=== PATIENT | female | born 1980 | race Caucasian/White ===

== ENCOUNTER 2019-04-06 16:41 | Emergency (ER) | payer BC, MEDICAID ==
[2019-04-06] MEDS ORDERED: Lidocaine Viscous Sol 2% 15 ml UD Cup ONE (17:33)
[2019-04-06] MEDS ORDERED: Mag-Al Plus 1200 MG/1200 MG/120 MG/30 ML UDCUP ONE (17:33)
[2019-04-06 17:44] LABS: Hemoglobin 11.2 g/dL (12.0-16.0); Red Blood Cell (RBC) Count 4.01 mill/uL (4.20-5.40)
[2019-04-06 17:45] LABS: #Lymphocytes 2.6 thou/uL (1.20-3.40); #Neutrophils 4.7 thou/uL (1.40-6.50); %Basophils 1.4 % (0.0-1.0); %Eosinophils 2.3 % (0.0-10.0); %Lymphocytes 32.6 % (21.0-51.0); %Monocytes 4.9 % (0.0-10.0); %Neutrophils 58.8 % (42.0-75.0); Manual Diff?? NO; Mean Corpuscular HGB CONC 30.4 g/dL (32.0-36.0); Mean Corpuscular Volume 92.1 fL (78.0-98.0); Mean Platelet Volume 7.2 fL (7.4-10.4); Platelet Count 333 thou/uL (130-400)
[2019-04-06 17:46] LABS: #Basophils 0.1 thou/uL (0.0-0.2); #Eosinphils 0.2 thou/uL (0.0-0.7); #Monocytes 0.4 thou/uL (0.11-0.59)
[2019-04-06 17:58] LABS: ALT (SGPT) 23 U/L (8-55); AST (SGOT) 25 U/L (5-34); Albumin 4.2 g/dL (3.5-5.0); Alkaline Phosphatase 94 U/L (40-110); Anion Gap 15 mmol/L (10-20); BUN (Urea Nitrogen) 12 mg/dL (7.0-18.7); Bilirubin, Total 0.2 mg/dL (0.2-1.2); Calc. Creatinine Clearance 0 mL/min (70-130); Calcium 9.2 mg/dL (7.8-10.44); Carbon Dioxide 21 mmol/L (22-29); Chloride 106 mmol/L (98-107); Estimated GFR-MDRD Greater than 90; Globulin 3.2 g/dL (2.4-3.5); Glucose 101 mg/dL (70-105); Potassium 4.1 mmol/L (3.5-5.1); Protein, Total 7.4 g/dL (6.0-8.3); Sodium 138 mmol/L (136-145)
--- NOTE | 2019-04-06 17:59 | RAD ---
TWO VIEWS CHEST: 04/06/19 PROVIDED CLINICAL HISTORY: Chest pain. FINDINGS: Evaluation is limited by patient body habitus. The cardiac silhouette is upper limits of normal to mi ldly enlarged. No focal consolidation, pleural fluid or pneumothorax apparent. IMPRESSION: No evidence for an acute cardiopulmonary process. POS: [facility]
== END 2019-04-06 19:20 | disposition home or self-care (01) ==
LOC: MADERS 16:41
DX: R07.9 Chest pain, unspecified (principal); R06.02 Shortness of breath; R60.0 Localized edema; E66.9 Obesity, unspecified; K21.9 Gastro-esophageal reflux disease without esophagitis; F41.9 Anxiety disorder, unspecified; Z87.891 Personal history of nicotine dependence; Z79.899 Other long term (current) drug therapy
CPT/HCPCS: 71046; 80053; 83880; 84484; 85025; 93005; 94760

== ENCOUNTER 2020-12-08 20:53 | Emergency (ER) | payer BC ==
[2020-12-08] MEDS ORDERED: Pantoprazole 40 MG VIAL ONE (22:44)
[2020-12-08] MEDS ORDERED: Ondansetron PF 4 MG/2 ML Vial ONE (22:44)
[2020-12-08] MEDS ORDERED: Sodium Chloride 0.9% 1,000 ML ONE (22:44)
[2020-12-08 23:06] LABS: ALT (SGPT) 20 U/L (8-55); AST (SGOT) 24 U/L (5-34); Albumin 4.6 g/dL (3.5-5.0); Alkaline Phosphatase 104 U/L (40-110); Anion Gap 17 mmol/L (10-20); BUN (Urea Nitrogen) 14 mg/dL (7.0-18.7); Bilirubin, Total 0.4 mg/dL (0.2-1.2); Calc. Creatinine Clearance 0 mL/min (70-130); Calcium 9.8 mg/dL (7.8-10.44); Carbon Dioxide 26 mmol/L (22-29); Chloride 101 mmol/L (98-107); Globulin 3.2 g/dL (2.4-3.5); Glucose 117 mg/dL (70-105); Potassium 4.1 mmol/L (3.5-5.1); Protein, Total 7.8 g/dL (6.0-8.3); Sodium 140 mmol/L (136-145)
[2020-12-08 23:12] LABS: CRP (Inflammatory) 2.46 mg/dL (= or < 0.5)
[2020-12-08 23:37] LABS: Band 11 % (5-11); Eosinophils 5 % (0-10); Hemoglobin 13.9 g/dL (12.0-16.0); Lymphocytes 12 % (21-51); MDiff Complete? YES; Mean Corpuscular HGB CONC 31.2 g/dL (32.0-36.0); Mean Corpuscular Hemoglobin 29.5 pg (27.0-31.0); Mean Corpuscular Volume 94.8 fL (78.0-98.0); Mean Platelet Volume 6.8 fL (7.4-10.4); Monocytes 6 % (0-10); Neutrophil 66 % (42-75); Platelet Count 371 thou/uL (130-400); RBC Distribution Width 13.3 % (11.5-14.5); RBC Morphology Normal; Red Blood Cell (RBC) Count 4.69 mill/uL (4.20-5.40); White Blood Cell (WBC) Count 9.9 thou/uL (4.8-10.8)
== END 2020-12-09 00:04 | disposition home or self-care (01) ==
LOC: MADERS 20:53
DX: A08.4 Viral intestinal infection, unspecified (principal); G47.30 Sleep apnea, unspecified; K21.9 Gastro-esophageal reflux disease without esophagitis; Z87.891 Personal history of nicotine dependence
CPT/HCPCS: 71045; 80053; 82150; 82550; 83605; 83690; 83880; 84484; 85025; 86140; 96374; 96375; C9113; J2405; J7050

== ENCOUNTER 2021-03-21 13:18 | Emergency (ER) | payer BC ==
[2021-03-21 14:11] LABS: #Eosinphils 0.1 thou/uL (0.0-0.7); #Lymphocytes 1.4 thou/uL (1.20-3.40); #Monocytes 0.6 thou/uL (0.11-0.59); #Neutrophils 3.6 thou/uL (1.40-6.50); %Basophils 0.5 % (0.0-1.0); %Eosinophils 2.4 % (0.0-10.0); %Lymphocytes 24.9 % (21.0-51.0); %Monocytes 9.7 % (0.0-10.0); %Neutrophils 62.5 % (42.0-75.0); Hemoglobin 12.3 g/dL (12.0-16.0); Mean Corpuscular HGB CONC 32.3 g/dL (32.0-36.0); Mean Corpuscular Hemoglobin 29.3 pg (27.0-31.0); Mean Corpuscular Volume 90.7 fL (78.0-98.0); Mean Platelet Volume 6.8 fL (7.4-10.4); Platelet Count 317 thou/uL (130-400); RBC Distribution Width 12.9 % (11.5-14.5); Red Blood Cell (RBC) Count 4.21 mill/uL (4.20-5.40); White Blood Cell (WBC) Count 5.7 thou/uL (4.8-10.8)
[2021-03-21 14:12] LABS: BHCG - Serum Negative (NEGATIVE); Pregs Control Background? CLEAR/WHITE (CLR/WHITE); Pregs Control Bar Appear? YES (CONTROL BAR)
[2021-03-21 14:23] LABS: ALT (SGPT) 21 U/L (8-55); AST (SGOT) 28 U/L (5-34); Albumin 4.1 g/dL (3.5-5.0); Alkaline Phosphatase 94 U/L (40-110); Anion Gap 14 mmol/L (10-20); BUN (Urea Nitrogen) 13 mg/dL (7.0-18.7); Bilirubin, Total Less than 0.2 mg/dL (0.2-1.2); CK (CPK) 67 U/L (29-168); CRP (Inflammatory) 2.43 mg/dL (= or < 0.5); Calc. Creatinine Clearance 0 mL/min (70-130); Calcium 9.8 mg/dL (7.8-10.44); Carbon Dioxide 27 mmol/L (22-29); Chloride 104 mmol/L (98-107); Globulin 3.1 g/dL (2.4-3.5); Glucose 101 mg/dL (70-105); Potassium 3.9 mmol/L (3.5-5.1); Protein, Total 7.2 g/dL (6.0-8.3); Sodium 141 mmol/L (136-145)
[2021-03-21 16:01] LABS: SARS-CoV-2 NAA Rapid Test DETECTED (NotDetected)
== END 2021-03-21 16:09 | disposition short-term general hospital (02) ==
LOC: MADERS 13:18
DX: U07.1 COVID-19 (principal); J12.82 Pneumonia due to coronavirus disease 2019; R79.89 Other specified abnormal findings of blood chemistry; K21.9 Gastro-esophageal reflux disease without esophagitis; E66.9 Obesity, unspecified; F17.210 Nicotine dependence, cigarettes, uncomplicated
CPT/HCPCS: 71045; 80053; 82550; 84484; 84703; 85025; 85379; 86140; 87804; 93005; U0002